=== PATIENT | female | born 1990 | race African-American/Black ===

== ENCOUNTER 2016-11-05 07:24 | Emergency (ER) | payer OTHER ==
[2016-11-05 07:36] LABS: BASOPHIL# 0.1 X10e3 (0-0.3); BASOPHIL% 1.1 % (0-2.5); EOSINOPHIL# 0.1 X10e3 (0-0.7); EOSINOPHIL% 1.3 % (0.0-7.0); HEMOGLOBIN 12.6 gm/dL (12.0-16.0); LYMPHOCYTE# 2.1 X10e3 (1.0-3.5); LYMPHOCYTE% 38.3 % (17.0-45.0); MEAN CELL VOLUME 93.4 FL (83-96); MEAN CORPUSCULAR HEMOGLOBIN 31.8 PG (28-34); MEAN PLATELET VOLUME 7.5 FL (6.5-11.5); MONOCYTE# 0.5 X10e3 (0-1.0); MONOCYTE% 9.1 % (3.0-12.0); NEUTROPHIL# 2.7 X10e3 (1.5-7.1); NEUTROPHIL% 50.2 % (40-75); PLATELET COUNT 210 X10e3 (140-420); RED BLOOD COUNT 3.96 X10e (3.90-5.30); RED CELL DISTRIBUTION WIDTH 12.2 % (11.0-15.5); WHITE BLOOD COUNT 5.4 X10e3 (4.0-10.5)
[2016-11-05 07:37] LABS: DIFF IND NO
[2016-11-05 08:04] LABS: BUN/CREATININE RATIO 11.42; CALCIUM SERUM 8.8 mg/dL (8.4-10.2); CREATININE SERUM 0.7 mg/dL (0.6-1.4); GLOM FILT RATE Estimated 139.6 mL/min (>60); POTASSIUM 4.3 mmol/L (3.5-5.1)
[2016-11-08 11:39] LABS: CHLAMYDIA TRACH Not Detected (Not Detected); N GONOR Not Detected (Not Detected)
== END 2016-11-05 12:10 | disposition left against medical advice (07) ==
LOC: CED 07:24
PROVIDERS: Emergency Medicine
DX: O20.0 Threatened abortion (principal); O99.331 Smoking (tobacco) complicating pregnancy, first trimester
CPT/HCPCS: 80048; 84702; 84703; 85025; 86900; 86901; 87491; 87591; 87808; 87905; 99284

== ENCOUNTER 2016-11-06 15:58 | Emergency (ER) | payer OTHER ==
--- NOTE | ~2016-11-06 | US134 ---
[facility] A Service of [facility] RADIOLOGY TEXT RESULTS PATIENT: DIONISIO BEAVERS LOCATION: [facility] : [birth year] UNIT #: [id number] AGE: [address]: Kristina Rivero SEX: F ORDER DR: [id number] [facility] [address] [place], [place] [address] [id number] E MR#: [id number] Acc #: [id number] NAME: DIONISIO BEAVERS : 1990 SEX: F STUDY DATE/TIME: 11/06/2016 16:43 UNIT: [facility] ROOM: STUDY DESCRIPTION: US Transvaginal Attending Physician: Kristina Rivero P.A.-C. Ordering Physician: Kristina Rivero P.A.-C. Primary Care Physician: Primary Care Physician No MEDICAL IMAGING REPORT This report is preliminary unless electronic signature is present EXAM Pelvic ultrasound INDICATIONS patient. Vaginal bleeding and pelvic cramping for the past 2 days. Quantitative beta HCG level 31,712. PROCEDURE Berkowitz-scale, color Doppler and M-mode imaging of the pelvis via transvaginal approach. COMPARISON None FINDINGS The uterus is retroverted. Uterus measures 6.2 x 7.8 x 5.5 cm. There is a single intrauterine . [place]-rump length 4 mm consistent with gestational age of 6-week-1-day. heart rate 113 beats per minute. There is a subchorionic hemorrhage along the caudal aspect of the gestational sac measuring approximately 3.0 x 1.1 cm. The right ovary measures 3.5 x 2.4 x 3.5 cm and contains a 2.2 cm cyst. The left ovary measures 3.3 x 2.2 x 2.7 cm. Ovaries have detectable flow. IMPRESSION 1. Viable single intrauterine with estimated gestational age of 6 weeks and 1 day. Heart rate 113 beats per minute. 2. Small to moderate sized subchorionic hemorrhage. Recommend close clinical followup and repeat pelvic ultrasounds as deemed clinically appropriate. Dictated by... Flip Puentes M.D. [facility] A Service of [facility] RADIOLOGY TEXT RESULTS PATIENT: DIONISIO BEAVERS LOCATION: [facility] : [birth year] UNIT #: [id number] AGE: [address]: Kristina Rivero SEX: F ORDER DR: THIS IS AN ELECTRONICALLY VERIFIED REPORT Flip Puentes M.D. at 11/07/2016 7:40 AM Eugenia TD: 11/07/2016 06:46 JOB #: [id number] MEDICAL IMAGING REPORT Page 1 of 1 COPY
[2016-11-06 16:29] LABS: BASOPHIL% 0.7 % (0-2.5); EOSINOPHIL# 0.1 X10e3 (0-0.7); EOSINOPHIL% 1.5 % (0.0-7.0); HEMATOCRIT 34.1 % (35.0-45.0); HEMOGLOBIN 11.9 gm/dL (12.0-16.0); LYMPHOCYTE# 2.7 X10e3 (1.0-3.5); MEAN CELL VOLUME 92.3 FL (83-96); MEAN CORPUSCULAR HEMOGLOBIN 32.1 PG (28-34); MEAN CORPUSCULAR HGB CONC 34.8 g/dL (30-36); MEAN PLATELET VOLUME 7.5 FL (6.5-11.5); MONOCYTE# 0.5 X10e3 (0-1.0); MONOCYTE% 9.5 % (3.0-12.0); NEUTROPHIL# 2.3 X10e3 (1.5-7.1); NEUTROPHIL% 41.3 % (40-75); PLATELET COUNT 192 X10e3 (140-420); RED BLOOD COUNT 3.69 X10e (3.90-5.30); RED CELL DISTRIBUTION WIDTH 12.1 % (11.0-15.5); WHITE BLOOD COUNT 5.6 X10e3 (4.0-10.5)
[2016-11-06 16:32] LABS: DIFF IND NO
== END 2016-11-06 18:11 | disposition home or self-care (01) ==
LOC: CED 15:58
PROVIDERS: Physician Assistant
DX: O20.8 Other hemorrhage in early pregnancy (principal); O99.331 Smoking (tobacco) complicating pregnancy, first trimester; F17.210 Nicotine dependence, cigarettes, uncomplicated; J45.909 Unspecified asthma, uncomplicated; F41.9 Anxiety disorder, unspecified; Z3A.01 Less than 8 weeks gestation of pregnancy
CPT/HCPCS: 76830; 85025; 99284